=== PATIENT | male | born 1990 | race Caucasian/White ===

== ENCOUNTER → 2020-05-29 09:00 | Outpatient (BNVA) | payer SELFPAY | PROVIDERS: Family Provider Nurse Practitioner Family; PCP Nurse Practitioner Family; Visit Provider Nurse Practitioner Family | DX: I10 Essential (primary) hypertension (principal); Z79.899 Other long term (current) drug therapy; E78.5 Hyperlipidemia, unspecified | CPT/HCPCS: 80048; 80061 ==

== ENCOUNTER → 2020-06-12 08:06 | Outpatient (BNVA) | payer SELFPAY | PROVIDERS: Family Provider Nurse Practitioner Family; PCP Nurse Practitioner Family; Visit Provider Nurse Practitioner Family | DX: E78.2 Mixed hyperlipidemia (principal) | CPT/HCPCS: 80076 ==